=== PATIENT | female | born 1970 | race Caucasian/White ===

== ENCOUNTER 2024-09-09 20:15 | Emergency (ER) | payer OTHER, SELFPAY ==
[2024-09-09 20:17] VITALS: BP 154/88
[2024-09-09 20:49] VITALS: BMI 28.2
[2024-09-09 21:00] VITALS: BP 120/81
--- NOTE | 2024-09-09 22:14 | ED.GENMED ---
History of Present Illness
General
Chief Complaint: Head Injury
Source: patient
Exam Limitations: none
Time Seen by Provider: 09/09/24 20:57
Nursing documentation reviewed up to this point in time: agreed with
History of Present Illness
History of Present Illness:
Patient states she fell while ice skating, Hit back of head on ice. Possible LOC. COmplains of posterior head pain, neck pain, low back pain. Incident occurred at approx 3 oclock. Brought self to ED for eval.
Past History
Past History
ED Past Medical History: None
Review of Systems
Review of Systems
Allergies reviewed?: Yes
All Other Systems: ROS reviewed and negative except as documented in HPI and ROS
Constitutional: Reports no symptoms
EENT: Reports no symptoms
Respiratory: Reports no symptoms
ABD/GI: Reports no symptoms
Musculoskeletal: Reports neck pain and back pain
Skin: Reports no symptoms
Neurological: Reports headache
Psychiatric: Reports no symptoms
Phy Exam
General Physical Exam
General Presentation: well appearing and mild distress
General age: appears stated age
General Skin: warm and dry
General Habitus: normal
General Mental: alert
Neurological Exam
Neurological Exam: alert, oriented x3, CN II-XII intact, no motor deficits, no sensory deficits, speech normal and normal gait
Musculoskeletal Exam
Musculoskeletal Exam: full ROM and neuro vasc intact
Skin Exam
Skin Exam: normal color, warm/dry and no rash
Psychiatric Exam
Psychiatric Exam: normal mood/affect
Course
Orders/Labs/Results
Orders:
Orders
09/09/24 21:08
CT Head W/o Iv Contrast Urgent
Comment:
Reason For Exam: trauma
Cervical Spine wo Contrast CT [CT Cervical Spine W/o Iv Contr] Urgent
Comment:
Reason For Exam: trauma
Lumbar Spine Complete, 4 View [CR Lumbar Spine Comp Min 4 Vw*] Urgent
Comment:
Reason For Exam: trauma
Vital Signs
Initial and Last Documented VS:
Initial Vital Signs
Temp Pulse Resp BP Pulse Ox
98.7 F 87 18 154/88 99
09/09/24 20:17 09/09/24 20:17 09/09/24 20:17 09/09/24 20:17 09/09/24 20:17
Last Documented Vital Signs
Temp Pulse Resp BP Pulse Ox
98.7 F 87 18 154/88 100
09/09/24 20:17 09/09/24 20:17 09/09/24 20:17 09/09/24 20:17 09/09/24 20:54
*Radiology
Radiology exam reviewed: radiology read reviewed
*Pulse Oximetry
Patient hypoxic: no
*Critical Care Note
Total Time (30-74mins, 75-104mins- exclusive of procedures): Not Applicable
Update Note
Update Note:
Patient to ED s/p fall while iceskating. CT head neg for acute findings. NO fx noted cspine and lumbar spine. Recommend ice, rest, ibuprofen. Discussed findings and plan with her. She is discharged home and will follow up with her healthcare
provider this week.
ED Attending Note
-
Portions of this chart may have been created with voice recognition software.� Occasional wrong word or��sound alike� substitutions may have occurred due to the inherent limitations of voice recognition software.
Discharge Plan
Departure
Patient Disposition: Home (Routine Discharge)
Date of Disposition: 09/09/24
Time of Disposition: 22:12
Patient with high blood pressure during this ER visit?: No
Condition: Good
Covid-19: Not Applicable
Discharge Problem:
Head injury, Back contusion
Instructions: Head Injury in Adults (DC), Contusion (DC), Cold therapy for pain, Ibuprofen
Referrals:
[facility] [Outside]
Referral Note: Physician referral line
UNKNOWN - PT DOES,NOT KNOW [Family Provider]
Interventions
Interventions:
*Risk Screen - Suicide Last Done: 09/09/24 20:17
*General Assessment Last Done: 09/09/24 20:49
*Neglect/Abuse Screening Last Done: 09/09/24 20:17
*ED- Fall Risk Assessment Last Done: 09/09/24 20:49
*ED COVID-19 Vaccine History Last Done: 09/09/24 20:49
ED- Neurological Assessment Last Done: 09/09/24 20:49
ED-Skin Assessment Last Done: 09/09/24 20:49
Discharge Date and Time
Print Language: [id number]
Musculoskeletal Injury Exam
Musculoskeletal Injury Exam
Posterior Neck:
Pain with Movement?: Moderate
Tender to palpation?: Moderate
Soft tissue swelling?: None
External deformity and angulation?: None
Joint effusion?: None
Contusion?: None
Hematoma-local bleeding into tissue?: None
Strain- Sprain- Tear (Connective tissue injury)?: Moderate
Crepitus with movement?: No
Joint instability?: No
Malalignment/deformity?: No
Range of motion: Full
Distal skin color and temperature: normal-warm & good color
Capillary Refill: normal
Normal distal neurovascular exam?: Yes
Bilateral Lower Back:
Pain with Movement?: Moderate
Tender to palpation?: Moderate
Soft tissue swelling?: None
External deformity and angulation?: None
Joint effusion?: None
Contusion?: Moderate
Hematoma-local bleeding into tissue?: None
Strain- Sprain- Tear (Connective tissue injury)?: Moderate
Crepitus with movement?: No
Joint instability?: No
Malalignment/deformity?: No
Range of motion: Full
Distal skin color and temperature: normal-warm & good color
Capillary Refill: normal
Normal distal neurovascular exam?: Yes
[2024-09-09 22:51] VITALS: BP 118/75
== END 2024-09-09 23:12 | disposition home or self-care (01) ==
LOC: EMR 20:15
PROVIDERS: EMERGENCY PHYSICIAN Emergency Medicine
DX: S09.90XA Unspecified injury of head, initial encounter (principal); S20.229A Contusion of unspecified back wall of thorax, initial encounter; M54.2 Cervicalgia; V00.211A Fall from ice-skates, initial encounter; Y93.21 Activity, ice skating
CPT/HCPCS: 99284; 70450; 72110; 72125

== ENCOUNTER → 2024-09-11 12:48 | Outpatient (REF) | payer OTHER, SELFPAY | LOC: RAD 12:48 | PROVIDERS: ATTENDING PHYSICIAN Advanced Practice Midwife | DX: T83.32XA Displacement of intrauterine contraceptive device, initial encounter (principal) | CPT/HCPCS: 76830; 76856 ==

== ENCOUNTER → 2024-10-23 18:35 | Outpatient (REF) | payer OTHER, SELFPAY | LOC: WDC 18:35 | PROVIDERS: ATTENDING PHYSICIAN Advanced Practice Midwife | DX: N64.4 Mastodynia (principal) | CPT/HCPCS: 77062; 77066 ==